=== PATIENT | female | born 1960 | race Caucasian/White ===

== ENCOUNTER 2021-09-29 16:56 | Inpatient (IN) | payer BC ==
[2021-09-29] MEDS ORDERED: Sodium Chloride 0.9% 10 ML Syringe FLUSH PRN ×2 (17:25→17:34)
[2021-09-29] MEDS ORDERED: Ondansetron 4 MG/2 ML SDV IVPUSH ONE (17:26)
[2021-09-29] MEDS ORDERED: HYDROmorphone 0.5 MG/0.5 ML Syringe IVPUSH ONE (17:26)
[2021-09-29] MEDS ORDERED: Sodium Chloride 0.9% 1,000 ML IV ONE (17:26)
[2021-09-29] MEDS ORDERED: Iopamidol 612 MG/ML 100 ML Bottle IVPUSH ONE (17:34)
[2021-09-29 18:15] LABS: ESTIMATED GFR 84 mL/min (>60)
[2021-09-29] MEDS ORDERED: cefOXitin 2 GM in Premix Bag 1 BAG IV ONE (19:43)
[2021-09-29] MEDS ORDERED: Heparin Sodium 5,000 Units/ML Vial SUBCUT ONE (19:44)
[2021-09-29] MEDS ORDERED: Lactated Ringers 1,000 ML IV ONE (19:45)
[2021-09-29] MEDS ORDERED: Heparin Sodium 5,000 Units/ML Vial ONE (20:00)
[2021-09-29] MEDS ORDERED: Rocuronium 50 MG/5 ML Vial ONE ×2 (20:02→21:31)
[2021-09-29] MEDS ORDERED: Ondansetron 4 MG/2 ML SDV ONE (20:02)
[2021-09-29] MEDS ORDERED: Dexamethasone 4 MG/ML 5 ML MDV ONE (20:02)
[2021-09-29] MEDS ORDERED: Lidocaine 1% 5 ML VIAL ONE (20:02)
[2021-09-29] MEDS ORDERED: Propofol 200 MG/20 ML SDV ONE (20:03)
[2021-09-29] MEDS ORDERED: Midazolam 1 MG/ML 2 ML SDV ONE (20:03)
[2021-09-29] MEDS ORDERED: fentaNYL 250 MCG/5 ML SDV ONE (20:03)
[2021-09-29] MEDS ORDERED: Bupivacaine 0.5%/EPINEPHrine 1:200,000 50 ML MDV ONE (20:06)
[2021-09-29] MEDS ORDERED: Sugammadex Sodium 200 MG/2 ML VIAL ONE (20:18)
[2021-09-29] MEDS ORDERED: Ondansetron 4 MG/2 ML SDV IVPUSH PRN ×2 (21:26→23:34)
[2021-09-29] MEDS ORDERED: HYDROmorphone 0.5 MG/0.5 ML Syringe ONE ×2 (21:55→22:07)
[2021-09-29] MEDS ORDERED: Lactated Ringers 1,000 ML ONE (21:56)
[2021-09-29] MEDS ORDERED: Heparin Sodium 5,000 Units/ML Vial SUBCUT SCH (23:30)
[2021-09-30] MEDS: fentaNYL 100 MCG/2 ML SDV IVPUSH PRN ×2 (00:23→01:00)
[2021-09-30] MEDS: HYDROmorphone 0.5 MG/0.5 ML Syringe IVPUSH PRN ×2 (00:34→08:42)
[2021-09-30] MEDS: Lactated Ringers 1,000 ML IV SCH ×2 (00:45→03:18)
[2021-09-30] MEDS: cefOXitin 2 GM in Premix Bag 1 BAG IV SCH ×3 (05:07→21:08)
[2021-09-30] MEDS: Pantoprazole 40 MG Vial IVPUSH SCH (08:30)
[2021-09-30] MEDS: Heparin Sodium 5,000 Units/ML Vial SUBCUT SCH ×3 (08:41→18:01)
[2021-09-30] MEDS: Dextrose 5%-0.45% NaCl 1,000 ML IV SCH ×2 (09:30→21:04)
[2021-09-30] MEDS: Benzocaine 20% Topical Spray UD MUCMEM PRN ×3 (09:30→21:12)
[2021-09-30] MEDS: Morphine 2 MG/ML SYRINGE IVPUSH PRN ×5 (10:12→21:04)
[2021-09-30] MEDS ORDERED: Benzocaine/Cetylpyridinium/Menthol Lozenge MUCMEM PRN (10:14)
[2021-10-01] MEDS: Morphine 2 MG/ML SYRINGE IVPUSH PRN ×12 (00:45→22:34)
[2021-10-01] MEDS: Benzocaine 20% Topical Spray UD MUCMEM PRN ×5 (00:45→20:10)
[2021-10-01] MEDS: Heparin Sodium 5,000 Units/ML Vial SUBCUT SCH ×3 (02:42→17:32)
[2021-10-01] MEDS: cefOXitin 2 GM in Premix Bag 1 BAG IV SCH ×4 (05:38→21:13)
[2021-10-01] MEDS ORDERED: HYDROmorphone 1 MG/ML Syringe IVPUSH ONE (06:40)
[2021-10-01] MEDS: Dextrose 5%-0.45% NaCl 1,000 ML IV SCH ×2 (08:03→18:55)
[2021-10-01] MEDS: Pantoprazole 40 MG Vial IVPUSH SCH (08:05)
[2021-10-02] MEDS: Morphine 2 MG/ML SYRINGE IVPUSH PRN (00:45)
[2021-10-02] MEDS: Heparin Sodium 5,000 Units/ML Vial SUBCUT SCH ×3 (02:16→17:14)
[2021-10-02] MEDS: cefOXitin 2 GM in Premix Bag 1 BAG IV SCH ×3 (05:53→23:33)
[2021-10-02] MEDS: Dextrose 5%-0.45% NaCl 1,000 ML IV SCH ×2 (06:44→17:51)
[2021-10-02] MEDS: Benzocaine 20% Topical Spray UD MUCMEM PRN (08:19)
[2021-10-02] MEDS: Ketorolac 30 MG/ML SDV IVPUSH SCH ×3 (08:50→20:11)
[2021-10-02] MEDS: Pantoprazole 40 MG Vial IVPUSH SCH (08:50)
[2021-10-03] MEDS: Heparin Sodium 5,000 Units/ML Vial SUBCUT SCH ×4 (01:22→18:38)
[2021-10-03] MEDS: Ketorolac 30 MG/ML SDV IVPUSH SCH ×2 (01:24→07:25)
[2021-10-03] MEDS: Dextrose 5%-0.45% NaCl 1,000 ML IV SCH ×2 (05:55→15:49)
[2021-10-03] MEDS: cefOXitin 2 GM in Premix Bag 1 BAG IV SCH ×3 (05:56→20:55)
[2021-10-03] MEDS ORDERED: Morphine 2 MG/ML SYRINGE IVPUSH PRN (08:11)
[2021-10-03] MEDS: Pantoprazole 40 MG Vial IVPUSH SCH (08:43)
[2021-10-03] MEDS: Acetaminophen 325 MG Tab PO SCH ×3 (08:43→20:47)
[2021-10-03] MEDS: Docusate Sodium 100 MG Cap PO SCH ×2 (08:44→20:47)
[2021-10-03] MEDS: traMADol 50 MG Tab PO PRN (18:35)
[2021-10-04] MEDS: Dextrose 5%-0.45% NaCl 1,000 ML IV SCH (02:28)
[2021-10-04] MEDS: Acetaminophen 325 MG Tab PO SCH ×2 (02:29→08:23)
[2021-10-04] MEDS: Heparin Sodium 5,000 Units/ML Vial SUBCUT SCH ×2 (02:30→09:42)
[2021-10-04] MEDS: cefOXitin 2 GM in Premix Bag 1 BAG IV SCH ×2 (05:30→06:39)
[2021-10-04] MEDS ORDERED: Simethicone 80 MG Tab.Chew PO PRN (08:14)
[2021-10-04] MEDS ORDERED: Polyethylene Glycol 3350 Powder 17 GM Packet PO ONE (08:15)
[2021-10-04] MEDS ORDERED: Bisacodyl 10 MG Supp RECTAL ONE (08:15)
[2021-10-04] MEDS: traMADol 50 MG Tab PO PRN (08:21)
[2021-10-04] MEDS: Docusate Sodium 100 MG Cap PO SCH (08:25)
[2021-10-04] MEDS: Pantoprazole 40 MG Vial IVPUSH SCH (08:29)
== END 2021-10-04 13:00 | disposition home or self-care (01) | DRG 230 ==
LOC: JD.ED 16:56 → JD.SDS 19:28 → JD.MS 23:30
PROVIDERS: ADMIT Surgery; ATTEND Surgery
PROC: 0DB84ZZ Excision of Small Intestine, Percutaneous Endoscopic Approach (ICD-10-PCS; principal; 2021-09-29)
PROC: 0WQF4ZZ Repair Abdominal Wall, Percutaneous Endoscopic Approach (ICD-10-PCS; 2021-09-29)
DX: K56.609 Unspecified intestinal obstruction, unspecified as to partial versus complete obstruction (principal); K65.8 Other peritonitis; K46.0 Unspecified abdominal hernia with obstruction, without gangrene; Z20.822 Contact with and (suspected) exposure to COVID-19; F17.290 Nicotine dependence, other tobacco product, uncomplicated; E66.9 Obesity, unspecified; F41.9 Anxiety disorder, unspecified; K91.89 Other postprocedural complications and disorders of digestive system; K56.7 Ileus, unspecified; Z68.41 Body mass index [BMI] 40.0-44.9, adult; Z90.49 Acquired absence of other specified parts of digestive tract
CPT/HCPCS: 00790; 36415; 71045; 71045-26; 74177; 74177-26; 80048; 80053; 81003; 83690; 83735; 85025; 85027; 86140; 96361; 96374; 96375; 97116-GP; 97161-GP; 99140; 99284; 99285-25; A9270-GY; C9113; J0694; J1100; J1170; J1644; J1885; J2250; J2270; J2405; J2704; J3010; J3490; J7030; J7042; J7120; Q9967; U0002

== ENCOUNTER 2021-10-10 09:53 | Emergency (ER) | payer BC ==
[2021-10-10] MEDS ORDERED: Lactated Ringers 500 ML IV ONE (10:57)
[2021-10-10] MEDS ORDERED: Sodium Chloride 0.9% 10 ML Syringe FLUSH PRN (13:46)
[2021-10-10] MEDS ORDERED: Iopamidol 612 MG/ML 100 ML Bottle IVPUSH ONE (13:46)
[2021-10-10] MEDS ORDERED: metroNIDAZOLE 500 MG Tab PO ONE (15:21)
[2021-10-10] MEDS ORDERED: Levofloxacin/Dextrose 5%-Water 750 MG in Premix Bag 1 BAG IV ONE (15:21)
== END 2021-10-10 17:15 | disposition home or self-care (01) ==
LOC: JD.ED 09:53
DX: N73.9 Female pelvic inflammatory disease, unspecified (principal); R31.9 Hematuria, unspecified; E66.9 Obesity, unspecified; Z88.5 Allergy status to narcotic agent; Z87.891 Personal history of nicotine dependence; Z68.38 Body mass index [BMI] 38.0-38.9, adult
CPT/HCPCS: 36415; 74177; 80053; 81001; 85025; 87086; 96361; 96365; 99284; A9270; J1956; J3490; J7120; Q9967

== ENCOUNTER 2023-03-06 11:52 | Emergency (ER) | payer BC ==
[2023-03-06 12:52] LABS: BASOPHILS PERCENT AUTO 0.4 % (0.0-1.0); EOSINOPHILS ABSOLUTE AUTO 0.1 K/mm3 (0.0-0.4); EOSINOPHILS PERCENT AUTO 1.4 % (0.0-6.0); HEMATOCRIT 37.6 % (37.0-47.0); HEMOGLOBIN 12.4 gm/dl (12.0-16.0); IMMATURE GRAN ABSOLUTE AUTO 0.02 K/mm3 (0.00-0.05); IMMATURE GRAN PERCENT AUTO 0.4 % (0.0-0.4); LYMPHOCYTES ABSOLUTE AUTO 1.2 K/mm3 (1.0-4.8); LYMPHOCYTES PERCENT AUTO 21.6 % (24.0-44.0); MEAN CORPUSCULAR HEMOGLOBIN 28.9 pg (28.0-32.0); MEAN CORPUSCULAR VOLUME 87.6 fl (83.0-99.0); MEAN PLATELET VOLUME 8.3 fl (9.4-12.3); MONOCYTES ABSOLUTE AUTO 0.2 K/mm3 (0.0-0.8); MONOCYTES PERCENT AUTO 4.2 % (0.0-8.0); NEUTROPHILS ABSOLUTE AUTO 4.1 K/mm3 (1.8-7.7); PLATELET COUNT,PLT 256 K/mm3 (150-400); RED BLOOD CELL COUNT 4.29 M/mm3 (4.10-5.30)
[2023-03-06 13:18] LABS: A/G RATIO 1.1 (1-2); ALBUMIN 3.7 g/dl (3.4-5.0); BILIRUBIN TOTAL 0.8 mg/dL (0.2-1.0); CALCIUM 9.2 mg/dL (8.5-10.1); CREATININE 0.7 mg/dL (0.55-1.02); EST CRCL DRUG DOSING (CG) 71.96 mL/min; PROTEIN TOTAL,TP 7.2 g/dl (6.4-8.2)
== END 2023-03-06 14:19 | disposition home or self-care (01) ==
LOC: JD.ED 11:52
DX: R04.0 Epistaxis (principal); R03.0 Elevated blood-pressure reading, without diagnosis of hypertension; E66.9 Obesity, unspecified; Z68.39 Body mass index [BMI] 39.0-39.9, adult
CPT/HCPCS: 36415; 80053; 85025; 99283

== ENCOUNTER 2023-03-16 11:46 | Emergency (ER) | payer BC ==
[2023-03-16] MEDS ORDERED: Sodium Chloride 0.9% 10 ML Syringe FLUSH PRN (12:13)
[2023-03-16] MEDS ORDERED: Sodium Chloride 0.9% 1,000 ML IV STA (12:13)
[2023-03-16] MEDS ORDERED: HYDROmorphone 0.5 MG/0.5 ML Syringe IVPUSH ONE (12:14)
[2023-03-16 12:57] LABS: BASOPHILS PERCENT AUTO 0.3 % (0.0-1.0); EOSINOPHILS PERCENT AUTO 0.1 % (0.0-6.0); HEMATOCRIT 38.2 % (37.0-47.0); HEMOGLOBIN 12.9 gm/dl (12.0-16.0); IMMATURE GRAN ABSOLUTE AUTO 0.03 K/mm3 (0.00-0.05); IMMATURE GRAN PERCENT AUTO 0.4 % (0.0-0.4); LYMPHOCYTES ABSOLUTE AUTO 0.8 K/mm3 (1.0-4.8); LYMPHOCYTES PERCENT AUTO 10.8 % (24.0-44.0); MEAN CORPUSCULAR HEMOGLOBIN 28.9 pg (28.0-32.0); MEAN CORPUSCULAR HGB CONC 33.8 g/dl (32.0-36.0); MEAN CORPUSCULAR VOLUME 85.7 fl (83.0-99.0); MEAN PLATELET VOLUME 8.9 fl (9.4-12.3); MONOCYTES ABSOLUTE AUTO 0.2 K/mm3 (0.0-0.8); MONOCYTES PERCENT AUTO 2.1 % (0.0-8.0); NEUTROPHILS ABSOLUTE AUTO 6.7 K/mm3 (1.8-7.7); NEUTROPHILS PERCENT AUTO 86.3 % (41.0-71.0); PLATELET COUNT,PLT 276 K/mm3 (150-400); RED BLOOD CELL COUNT 4.46 M/mm3 (4.10-5.30); WHITE BLOOD CELL COUNT,WBC 7.71 K/mm3 (3.9-11.3)
[2023-03-16] MEDS: Alum Hydrox/Mag Hydrox/Simeth 30 ML, Lidocaine 2% 15 ML PO ONE ×4 (13:09→13:21)
[2023-03-16 13:24] LABS: A/G RATIO 1.1 (1-2); ALANINE AMINOTRANSFERASE,ALT 20 U/L (14-59); ALBUMIN 3.9 g/dl (3.4-5.0); ALKALINE PHOSPHATASE 54 U/L (46-116); ANION GAP 18.3 (5-15); ASPARTATE AMNIOTRANSFERASE,AST 12 U/L (15-37); BILIRUBIN TOTAL 0.6 mg/dL (0.2-1.0); BLOOD UREA NITROGEN,BUN 15 mg/dL (7-18); BUN/CREATININE RATIO 21.4 (14-18); C-REACTIVE PROTEIN <0.2 mg/dL (<1.0); CALCIUM 9.7 mg/dL (8.5-10.1); CARBON DIOXIDE,CO2 22 mEq/L (21-32); CHLORIDE,CL 102 mEq/L (98-107); CREATININE 0.7 mg/dL (0.55-1.02); EST CRCL DRUG DOSING (CG) 71.96 mL/min; ESTIMATED GFR 98 mL/min (>60); GLUCOSE RANDOM 114 mg/dL (70-99); POTASSIUM,K 4.3 mEq/L (3.5-5.1); PROTEIN TOTAL,TP 7.6 g/dl (6.4-8.2); SODIUM,NA 138 mEq/L (136-145)
[2023-03-16] MEDS ORDERED: Ketorolac 30 MG/ML SDV IVPUSH ONE (13:48)
== END 2023-03-16 15:20 | disposition home or self-care (01) ==
LOC: JD.ED 11:46
DX: M79.601 Pain in right arm (principal); E66.9 Obesity, unspecified; Z68.39 Body mass index [BMI] 39.0-39.9, adult; Z87.891 Personal history of nicotine dependence; Z88.5 Allergy status to narcotic agent
CPT/HCPCS: 36415; 71046; 71046-26; 80053; 83690; 84484; 85025; 85379; 86140; 93005; 93010; 96361; 96374; 96375; 99284; 99285-25; A9270-GY; J1170; J1885; J3490; J7030